=== PATIENT | female | born 1955 | race Two or more races ===

== ENCOUNTER 2025-01-26 07:58 | Inpatient (IN) | payer OTHER ==
[~2025-01-26] VITALS: Ht 154.9 cm; Wt 68.0 kg
--- NOTE | 2025-01-26 08:18 | ED.PDOC ---
GI ASSESSMENT HPI Comments 69 y/o F, with PMHx of GERD and diverticulosis presents to the ED for CC of abdominal pain. Patient states, she has been experiencing LUQ and LLQ abdominal pain with associated nausea [id number]. Patient c/o current 01/31 left-sided abdominal pain. Patient denies vomiting, diarrhea, fever, dysuria, or hematuria. No other symptoms or modifying factors are present at this time. Chief Complaint: Abdominal Pain Time Seen by MD: 08:00 Reviewed Notes: Nurses Notes, Medications, Allergies Allergies: Coded Allergies: Hydrocodone (Verified Allergy, Unknown, 01/26/25) Information Source: Patient Mode of Arrival: Ambulatory Timing: Weeks Duration: Since onset Vomitus: None Stool: Normal Severity: Moderate Recent: None Recent Hx of: None Pain Location: LUQ, LLQ Modifying Factors: Nothing Associated sign and symptoms: Nausea, Abdominal Pain Past Medical History PAST MEDICAL HISTORY: GERD Surgical History: , Hysterectomy (partial) Surgical History (Other): right-shoulder COMMUNITY RECREATION COORDINATOR History: Denies all COMMUNITY RECREATION COORDINATOR Hx Family History Family History: Family hx of DM, Family hx of HTN Social History Smoker: Non-Smoker Alcohol: Denies ETOH Use Drugs: Denies Drug Use Lives In: Home Constitutional: denies: chills, diaphoresis, fatigue, fever, malaise, sweats, weakness, others EENTM: denies: blurred vision, double vision, ear bleeding, ear discharge, ear drainage, ear pain, ear ringing, eye pain, eye redness, hearing loss, mouth pain, mouth swelling, nasal discharge, nose bleeding, nose congestion, nose pain, photophobia, tearing, throat pain, throat swelling, voice changes, others Respiratory: denies: cough, hemoptysis, orthopnea, SOB at rest, shortness of breath, SOB with excertion, stridor, wheezing, others Cardiovascular: denies: chest pain, dizzy spells, diaphoresis, Dyspnea on exertion, edema, irregular heart beat, left arm pain, lightheadedness, palpitations, PND, syncope, others Gastrointestinal: reports: abdominal pain, nausea; denies: abdomen distended, blood streaked bowels, constipated, diarrhea, dysphagia, difficulty swallowing, hematemesis, melena, poor appetite, poor fluid intake, rectal bleeding, rectal pain, vomiting, others Genitourinary: denies: abnormal vagina bleeding, burning, dyspareunia, dysuria, flank pain, frequency, hematuria, incontinence, pain, , vagina discharge, urgency, others Neurological: denies: dizziness, fainting, headache, left sided numbness, left sided weakness, numbness, paresthesia, pre-existing deficit, right sided numbness, right sided weakness, seizure, speech problems, tingling, tremors, weakness, others Musculoskeletal: denies: back pain, gout, joint pain, joint swelling, muscle pain, muscle stiffness, neck pain, others Integumetry: denies: bruises, change in color, change in hair/nails, dryness, laceration, lesions, lumps, rash, wounds, others Allergic/Immunocompromised: denies: Difficulty Healing, Frequent Infections, Hives, Itching, others Hematologic/Lymphatic: denies: anemia, blood clots, easy bleeding, easy bruising, swollen glands, others Endocrine: denies: excessive hunger, excessive sweating, excessive thirst, excessive urination, flushing, intolerance to cold, intolerance to heat, unexplained weight gain, unexplained weight loss, others Psychiatric: denies: anxiety, bipolar disorder, depression, hopeless, panic disorder, schizophrenia, sleepless, suicidal, others All Other Systems: Reviewed and Negative Physical Exam General Appearance: Moderate Distress HEENT: Normal ENT Inspection, Pharynx Normal, TMs Normal Neck: Full Range of Motion, Non-Tender, Normal, Normal Inspection Respiratory: Chest Non-Tender, Lungs Clear, No Accessory Muscle Use, No Res piratory Distress, Normal Breath Sounds Cardiovascular: No Edema, No JVD, No Murmur, No Gallop, Normal Peripheral Pulses, Regular Rate/Rhythm Breast Exam: Deferred Gastrointestinal: LLQ, LUQ, No Organomegaly, Non Tender, No Pulsatile Mass, Normal Bowel Sounds, Soft, Tenderness Genitalia: Deferred Pelvic: Deferred Rectal: Deferred Extremities: No calf tenderness, Normal capillary refill, Normal inspection, Normal range of motion, Non-tender, No pedal edema Musculoskeletal : Apperance: Normal Neurologic: Alert, enlisted aircrew/aerial observer/gunner II-XII nml as Tested, Motor Weakness, Normal Affect, Normal Mood, No Sensory Deficits Cerebellar Function: Normal Reflexes: Normal Skin: Dry, Normal Color, Warm Lymphatic: No Adenopathy Was a procedure done? Was a procedure done?: No GI differential Dx Differential Diagnosis: Diverticular disease, Gastritis/PUD, Gastroenteritis, Inflammatory BD, Electrolyte Imbalance, Bacterial, Viral X-Ray, Labs, Meds, VS Vital Signs Date Time Temp Pulse Resp B/P (MAP) Pulse Ox O2 Delivery O2 Flow Rate FiO2 01/26/25 10:23 108/74 01/26/25 09:18 188/75 01/26/25 09:17 66 18 188/75 (112) 98 01/26/25 08:36 78 18 98 Room Air 01/26/25 08:36 98.2 78 18 190/90 (123) 98 98.2 01/26/25 08:00 97.7 83 16 170/89 97 97.7 Lab Test 01/26/25 10:35 01/26/25 09:14 01/26/25 09:10 Range/Units Urine Color Yellow Yellow Urine Clarity Cloudy H Clear Urine pH 5.5 5.0-9.0 Urine Specific [place] 1.021 1.001-1.035 Urine Protein Trace H Negative Urine Ketones 1+ H Negative Urine Blood 1+ H Negative /uL Urine Nitrite Negative Negative Urine Bilirubin Negative Negative Urine Urobilinogen Normal Negative mg/dL Urine Leukocyte Esterase 3+ Negative /uL Urine RBC 15 0 - 4 /hpf Urine Microscopic WBC 20 H 0-5 /HPF Urine Squamous Epithelial Cells Mod <5 /hpf Urine Bacteria Few H None Seen /hpf Urine Mucus Few None Seen Urine Yeast (Budding) Few None Seen /hpf Urine Glucose Normal Normal mg/dL Urine Opiates Screen Neg NEGATIVE Urine Fentanyl Screen Neg NEGATIVE Urine Barbiturates Screen Neg NEGATIVE Urine Phencyclidine Screen Neg NEGATIVE Urine Amphetamines Screen Neg NEGATIVE Urine Benzodiazepines Screen Neg NEGATIVE Urine Cocaine Screen Neg NEGATIVE Urine Cannabinoids Screen Neg NEGATIVE Sodium Level 142 136-145 mmol/L Potassium Level 4.4 3.5-5.1 mmol/L Chloride Level 105 98-107 mmol/L Carbon Dioxide Level 24 20-31 mmol/L Anion Gap 13 5-15 Blood Urea Nitrogen 6 L 9-23 mg/dL Creatinine 0.91 0.550-1.02 mg/dL Glomerular Filtration Rate Calc 69 >90 mL/min BUN/Creatinine Ratio 6.6 L 10.0-20.0 Serum Glucose 95 74-106 mg/dL Calcium Level 9.6 8.7-10.4 mg/dL Total Bilirubin 0.8 0.2-1.0 mg/dL Aspartate Amino Transferase (AST) 36 13-40 U/L Alanine Aminotransferase (ALT) 30 7-40 U/L Alkaline Phosphatase 82 46-116 U/L Total Protein 8.0 5.7-8.2 g/dL Albumin 4.7 3.2-4.8 g/dL Lipase 37 12-53 U/L White Blood Count 6.2 4.4-10.8 10^3/uL Red Blood Count 4.96 4.0-5.20 10^6/uL Hemoglobin 15.2 12.2-16.2 g/dL Hematocrit 44.8 36.0-46.0 % Mean Corpuscular Volume 90.3 80.0-100.0 fL Mean Corpuscular Hemoglobin 30.7 28.0-32.0 pg Mean Corpuscular Hemoglobin Concent 34.0 32.0-36.0 g/dL Red Cell Distribution Width 12.9 11.8-14.3 % Platelet Count 224 140-450 10^3/uL Mean Platelet Volume 9.3 6.9-10.8 fL Neutrophils (%) (Auto) 70.0 37.0-80.0 % Lymphocytes (%) (Auto) 22.0 10.0-50.0 % Monocytes (%) (Auto) 6.4 0.0-12.0 % Eosinophils (%) (Auto) 0.8 0.0-7.0 % Basophils (%) (Auto) 0.8 0.0-2.0 % Neutrophils # (Auto) 4.4 1.6-8.6 10 ^3/uL Lymphocytes # (Auto) 1.4 0.4-5.4 10 ^3/uL Monocytes # (Auto) 0.4 0-1.3 10 ^3/uL Eosinophils # (Auto) 0 0-0.8 10 ^3/uL Basophils # (Auto) 0 0-0.2 10 ^3/uL Nucleated Red Blood Cells 0.2 % Current Medications Medications (Trade) Dose Ordered Sig/Saranya Route Start Time Stop Time Status Last Admin Sodium Chloride 500 ml @ 500 mls/hr Q1H ONCE IVB 01/26/25 08:15 01/26/25 09:14 DC 01/26/25 08:41 Clonidine HCl (Catapres Tablet) 0.2 mg ONCE ONCE PO 01/26/25 09:00 01/26/25 09:01 DC 01/26/25 09:18 CT ABD PEL: IMPRESSION: 1. Scattered colonic diverticula without adjacent inflammatory changes to suggest diverticulitis. 2. Hepatic steatosis. 3. Additional nonacute findings as described above. The patient's CBC is within normal limits The chemistry panel is within normal limits The patient was given Catapres 0.2 mg by mouth for the elevated blood pressure The patient was given normal saline as a bolus The urine tox is negative The urine test is positive for a significant urinary tract infection The patient is given Rocephin 1 g IV piggyback for the infection The patient is admitted Images Reviewed?: Images reviewed and evaluated by me Time of 1ST Reevaluation: 08:30 Reevaluation 1ST: Unchanged Patient Education/Counseling: Diagnosis, Treatment, Prognosis Family Education/Counseling: No Family Present SEPSIS Sepsis Screen Date sepsis recognized/suspect: Jan 26, 2025 Time Sepsis recognized/suspect: 08 Recent Procedure: No On Antibiotic Therapy: No Respiratory Rate >20: No Heart Rate >90: No Temp<36 C (96.8 F) or >38.3 C: No SBP <90 or MAP <65 mmHG: No New Acute Mental Status Change: No Is the patient on CPAP, BIPAP,: No Physician Orders Ct Ab Pel Wo Con-No Oral Or Iv (01/26/25 08:13) Heplock Iv (01/26/25 08:13) Vital Signs Date Time Temp Pulse Resp B/P (MAP) Pulse Ox O2 Delivery O2 Flow Rate FiO2 01/26/25 10:23 108/74 01/26/25 09:18 188/75 01/26/25 09:17 66 18 188/75 (112) 98 01/26/25 08:36 78 18 98 Room Air 01/26/25 08:36 98.2 78 18 190/90 (123) 98 98.2 01/26/25 08:00 97.7 83 16 170/89 97 97.7 Laboratory Tests Test 01/26/25 09:10 White Blood Count 6.2 10^3/uL (4.4-10.8) Medications Medications Dose Ordered Sig/Saranya Route Start Time Stop Time Status Last Admin Dose Admin Clonidine HCl 0.2 mg ONCE ONCE PO 01/26/25 09:00 01/26/25 09:01 DC 01/26/25 09:18 Sodium Chloride 500 ml @ 500 mls/hr Q1H ONCE IVB 01/26/25 08:15 01/26/25 09:14 DC 01/26/25 08:41 Departure 1 Departure Time of Disposition: 12:36 Impression: Primary Impression: Intractable abdominal pain Additional Impression: UTI (urinary tract infection) Qualified Codes: N30.00 - Acute cystitis without hematuria Disposition: ADMITTED INPATIENT Admit to: Med Surg Condition: Fair Critical Care Note Critical Care Time?: No Stability Stability form required: Yes Unstable for transfer: ED Physician Assesment (Clinical assesment) Heart Score Heart Score: Heart Score Response (Comments) Value History N/A 0 EKG N/A 0 Age N/A 0 Risk Factors N/A 0 Troponin N/A 0 Total 0 I personally scribed for NADEGE BLAIR MD ([email or web address]) on 01/26/25 at 08:17. Electronically submitted by Li Kern ([email or web address]). I personally scribed for NADEGE BLAIR MD ([email or web address]) on 01/26/25 at 09:18. Electronically submitted by Li Kern [email or web address]). NADEGE BLAIR MD Jan 26, 2025 08:17
[2025-01-26] MEDS: SODIUM CHLORIDE 0.9% 500 ML IVB ONE (08:41)
--- NOTE | 2025-01-26 09:02 | DVH ---
CLINICAL INFORMATION: Left upper and lower quadrant pain. TECHNIQUE: Axial CT images of the abdomen and pelvis were obtained without IV contrast. Coronal and s agittal reformatted images were obtained, reviewed, and stored. Evaluation of the parenchymal organs is limited without IV contrast. Evaluation of the bowel and mesentery is limited without oral contras t. All CT scans at this medical facility are performed using dose modulation techniques as appropriat e to a performed exam including the following: Automated exposure control was utilized; adjustment of the MA and/or KV according to patient size; and use of iterative reconstruction technique. CTDIvol = 9.97 mGy DLP = 546.84 mGy-cm COMPARISON: None FINDINGS: Lung bases: Minimal dependent atelectasis. Liver: Hepatic steatosis. Biliary: No calcified gallstones or biliary ductal dilatation. Spleen: Unremarkable. Pancreas: Grossly unremarkable in its noncontrast enhanced appearance. Adrenal glands: Unremarkable. No mass. Kidneys: No hydronephrosis. No renal or ureteral calculi. Fluid density lesion at the inferior pole o f the right kidney measuring up to 2 cm, likely a cyst. Aorta/Vascular: Minimal atherosclerotic calcification. No abdominal aortic aneurysm. Lymph nodes: No mass or lymphadenopathy. Bowel/mesentery: No small bowel obstruction. No free air or free fluid. Appendix is not visualized. S cattered colonic diverticula without adjacent inflammatory changes to suggest diverticulitis. Pelvic organs: Uterus is anteverted. Bladder: Unremarkable. No mass. Abdominal wall: No mass or hernia. Bones: No acute fracture or suspicious intraosseous lesion. IMPRESSION: 1. Scattered colonic diverticula without adjacent inflammatory changes to suggest diverticulitis. 2. Hepatic steatosis. 3. Additional nonacute findings as described above.
[2025-01-26 09:35] LABS: Hematocrit 44.8 % (36.0-46.0); Hemoglobin 15.2 g/dL (12.2-16.2); Mean Corpuscular Hemoglobin 30.7 pg (28.0-32.0); Mean Corpuscular Volume 90.3 fL (80.0-100.0); Nucleated Red Blood Cells % 0.2 %
[2025-01-26 10:07] LABS: Alanine Aminotransferase 30 U/L (7-40); Albumin 4.7 g/dL (3.2-4.8); Alkaline Phosphatase 82 U/L (46-116); Anion Gap 13 (5-15); BUN/Creatinine Ratio 6.6 (10.0-20.0); Bilirubin, Total 0.8 mg/dL (0.2-1.0); Calcium 9.6 mg/dL (8.7-10.4); Carbon Dioxide 24 mmol/L (20-31); Chloride 105 mmol/L (98-107); Glucose 95 mg/dL (74-106); Potassium 4.4 mmol/L (3.5-5.1); Sodium 142 mmol/L (136-145); Total Protein 8.0 g/dL (5.7-8.2)
[2025-01-26 10:08] LABS: Blood Urea Nitrogen 6 mg/dL (9-23)
[2025-01-26 10:36] LABS: Lipase 37 U/L (12-53)
[2025-01-26 10:59] LABS: Urine Budding Yeast FEW /hpf (None Seen); Urine Protein, UAD TRACE (Negative)
[2025-01-26] MEDS ORDERED: NITROGLYCERIN 0.4 MG SL TAB SL PRN (11:45)
--- NOTE | 2025-01-26 11:48 | DVHHPRES ---
History of Present Illness Resident Creating Document: BRAYAN KUO RESIDENT History of Present Illness Marce Natarajan is a 69-year-old female with a PMH of GERD, diverticulitis, osteoarthritis presented to the ED with the chief complaints of left-sided abdominal pain since 3 weeks. Patient reported she was initially went to [facility] where she was given tramadol and sent home however the pain not improved and remained constant which is 8 to 10/10 in intensity, located in left upper and lower quadrant radiating to flank and back, aggravated by eating but no relieving factors associated with the nausea but no vomiting and diarrhea. Patient also reported increased urinary frequency but denies dysuria. Patient is thinking of diverticulitis because of history of diverticulitis 2 years ago. PMH follow GERD, diverticulitis, osteoarthritis, C diff infection 4 years ago PSH: Partial hysterectomy for endometriosis, rotator cuff surgery Family history: Stomach cancer in aunt and breast cancer Social history: Lives at home. Denies smoking, alcohol and other drug abuse Allergies: No specific allergies Home medications: Omeprazole Review of Systems Review of Systems Patient seen and examined at the bedside. Currently complaining of left-sided abdominal and flank pain associated with the nausea, abdominal bloating, belching. Positive for increased urinary frequency. Rest of ROS is negative Allergies: Coded Allergies: Hydrocodone (Verified Allergy, Unknown, 01/26/25) Medications Current Medications Medications Dose Ordered Sig/Saranya Route Start Time Stop Time Status Last Admin Dose Admin Sodium Chloride 10 ml Q8HR IV 01/26/25 14:00 UNV Sodium Chloride 1,000 ml @ 60 mls/hr [id number] IV 01/26/25 11:45 UNV Ondansetron HCl 4 mg Q4HP PRN IV 01/26/25 11:45 UNV Enoxaparin Sodium 40 mg DAILY SC 01/27/25 10:00 UNV Acetaminophen 650 mg Q6HP PRN PO 01/26/25 11:45 UNV Morphine Sulfate 2 mg Q4HPRN PRN IV 01/26/25 11:45 UNV Nitroglycerin 0.4 mg Q5MINP PRN SL 01/26/25 11:45 UNV Morphine Sulfate 2 mg Q30M PRN IV 01/26/25 11:45 UNV Pantoprazole Sodium 40 mg DAILY IV 01/27/25 10:00 UNV Sucralfate 1 gm BID@0600,2200 PO 01/26/25 11:45 UNV Ceftriaxone Sodium 50 ml @ 100 mls/hr DAILY@09 IV 01/27/25 09:00 UNV Exam Vital Signs Vital Signs Date Time Temp Pulse Resp B/P (MAP) Pulse Ox O2 Delivery O2 Flow Rate FiO2 01/26/25 10:23 108/74 01/26/25 09:17 66 18 98 01/26/25 08:36 Room Air 01/26/25 08:36 98.2 98.2 Exam Pt is lying on bed General Appearance: Alert, Oriented X3, Cooperative, Not in acute distress HEENT: Atraumatic, Mucous membranes moist/pink Respiratory: Clear to auscultation, Normal air movement, No added sounds Cardiovascular: Regular rate, Normal S1, Normal S2, No murmurs Abdominal: Active bowel sounds, Soft, no distention, left upper and lower quadrant, flank tenderness Extremities: No edema, Normal pulses, No tenderness/swelling Skin: No Significant rash, except past surgical scars Neuro: Normal speech, sensorimotor deficits none Psych/Mental Status: Mental status NL, Mood NL Nurse was there as structural iron worker during examination Labs/Xrays Labs Test 01/26/25 10:35 01/26/25 09:14 01/26/25 09:10 Range/Units Urine Color Yellow Yellow Urine Clarity Cloudy H Clear Urine pH 5.5 5.0-9.0 Urine Specific [place] 1.021 1.001-1.035 Urine Protein Trace H Negative Urine Ketones 1+ H Negative Urine Blood 1+ H Negative /uL Urine Nitrite Negative Negative Urine Bilirubin Negative Negative Urine Urobilinogen Normal Negative mg/dL Urine Leukocyte Esterase 3+ Negative /uL Urine RBC 15 0 - 4 /hpf Urine Microscopic WBC 20 H 0-5 /HPF Urine Squamous Epithelial Cells Mod <5 /hpf Urine Bacteria Few H None Seen /hpf Urine Mucus Few None Seen Urine Yeast (Budding) Few None Seen /hpf Urine Glucose Normal Normal mg/dL Sodium Level 142 136-145 mmol/L Potassium Level 4.4 3.5-5.1 mmol/L Chloride Level 105 98-107 mmol/L Carbon Dioxide Level 24 20-31 mmol/L Anion Gap 13 5-15 Blood Urea Nitrogen 6 L 9-23 mg/dL Creatinine 0.91 0.550-1.02 mg/dL Glomerular Filtration Rate Calc 69 >90 mL/min BUN/Creatinine Ratio 6.6 L 10.0-20.0 Serum Glucose 95 74-106 mg/dL Calcium Level 9.6 8.7-10.4 mg/dL Total Bilirubin 0.8 0.2-1.0 mg/dL Aspartate Amino Transferase (AST) 36 13-40 U/L Alanine Aminotransferase (ALT) 30 7-40 U/L Alkaline Phosphatase 82 46-116 U/L Total Protein 8.0 5.7-8.2 g/dL Albumin 4.7 3.2-4.8 g/dL Lipase 37 12-53 U/L White Blood Count 6.2 4.4-10.8 10^3/uL Red Blood Count 4.96 4.0-5.20 10^6/uL Hemoglobin 15.2 12.2-16.2 g/dL Hematocrit 44.8 36.0-46.0 % Mean Corpuscular Volume 90.3 80.0-100.0 fL Mean Corpuscular Hemoglobin 30.7 28.0-32.0 pg Mean Corpuscular Hemoglobin Concent 34.0 32.0-36.0 g/dL Red Cell Distribution Width 12.9 11.8-14.3 % Platelet Count 224 140-450 10^3/uL Mean Platelet Volume 9.3 6.9-10.8 fL Neutrophils (%) (Auto) 70.0 37.0-80.0 % Lymphocytes (%) (Auto) 22.0 10.0-50.0 % Monocytes (%) (Auto) 6.4 0.0-12.0 % Eosinophils (%) (Auto) 0.8 0.0-7.0 % Basophils (%) (Auto) 0.8 0.0-2.0 % Neutrophils # (Auto) 4.4 1.6-8.6 10 ^3/uL Lymphocytes # (Auto) 1.4 0.4-5.4 10 ^3/uL Monocytes # (Auto) 0.4 0-1.3 10 ^3/uL Eosinophils # (Auto) 0 0-0.8 10 ^3/uL Basophils # (Auto) 0 0-0.2 10 ^3/uL Nucleated Red Blood Cells 0.2 % SEPSIS Sepsis Screen Date sepsis recognized/suspect: Jan 26, 2025 Time Sepsis recognized/suspect: 0800 Recent Procedure: No On Antibiotic Therapy: No Respiratory Rate >20: No Heart Rate >90: No Temp<36 C (96.8 F) or >38.3 C: No SBP <90 or MAP <65 mmHG: No New Acute Mental Status Change: No Is the patient on CPAP, BIPAP,: No Physician Orders Ct Ab Pel Wo Con-No Oral Or Iv (01/26/25 08:13) Heplock Iv (01/26/25 08:13) Admit (01/26/25 11:33) Allergies (01/26/25 11:33) Code Status (01/26/25:) Sodium Chloride Lock (Saline Lock Ns) (01/26/25 14:00) Sodium Chloride 0.9% (01/26/25 11:45) Ondansetron Hcl (Zofran) (01/26/25 11:45) Enoxaparin Sodium (Lovenox) (01/27/25 10:00) Complete Blood Count (01/27/25 04:00) Comprehensive Metabolic Panel (01/27/25 04:00) Condition: Fair (01/26/25 11:33) Acetaminophen Tablet (Tylenol Tablet) (01/26/25 11:45) Clear Liq Diet (01/26/25 Lunch) Morphine Sulfate Injection (01/26/25 11:45) Nitroglycerin Sublingual (Ntrostat Subli (01/26/25 11:45) Morphine Sulfate Injection (01/26/25 11:45) Oxygen By Nasal Cannula (01/26/25:33) Stat Ekg For Chest Pain (01/26/25:33) Notify Md Of Changes From Base (01/26/25 11:33) Office Systems Technology Instructor For 24 Hours (01/26/25 11:33) Emergency Dysrhythmia Protocol (01/26/25 11:33) Rhythm Strips Once Every Shift (01/26/25 11:33) Pantoprazole (Protonix) (01/27/25 10:00) Pantoprazole (Protonix) (01/26/25 11:45) Sucralfate Susp (Carafate Susp) (01/26/25 11:45) Ceftriaxone 1gm/50ml (Rocephin) (01/27/25 09:00) Ceftriaxone 1gm/50ml (Rocephin) (01/26/25 11:45) Lactic Acid W/ Reflex Order (01/26/25 11:33) B-Type Natriuretic Peptide (01/26/25 11:33) Drug Screen (01/26/25 11:33) Magnesium (01/26/25 11:33) Urine Bacterial Culture (01/26/25 11:33) Vital Signs Date Time Temp Pulse Resp B/P (MAP) Pulse Ox O2 Delivery O2 Flow Rate FiO2 01/26/25 10:23 108/74 01/26/25 09:18 188/75 01/26/25 09:17 66 18 188/75 (112) 98 01/26/25 08:36 78 18 98 Room Air 01/26/25 08:36 98.2 78 18 190/90 (123) 98 98.2 01/26/25 08:00 97.7 83 16 170/89 97 97.7 Laboratory Tests Test 01/26/25 09:10 White Blood Count 6.2 10^3/uL (4.4-10.8) Medications Medications Dose Ordered Sig/Saranya Route Start Time Stop Time Status Last Admin Dose Admin Clonidine HCl 0.2 mg ONCE ONCE PO 01/26/25 09:00 01/26/25 09:01 DC 01/26/25 09:18 0.2 MG Sodium Chloride 500 ml @ 500 mls/hr Q1H ONCE IVB 01/26/25 08:15 01/26/25 09:14 DC 01/26/25 08:41 500 MLS/HR Assessment/Plan Assessment/Plan # Acute complicated UTI/ cystitis # Acute Pyelonephritis - evident on urinalysis - ordered urine bacterial culture - currently giving Rocephin # Possible Acute epigastritis # Acute GERD - Protonix - Carafate # Colonic diverticulosis- dietary education given # Hepatic steatosis likely possible MASH - evident on CT, outpatient follow up with GI # Hypertensive urgency without known diagnosis of hypertension -given clonidine in ED -continuously monitor blood pressure -started on nifedipine 30 GI PPX: Protonix VTE ppx: Lovenox Diet: clear liquid diet Goals of care addressed with the patient for more than 27 minutes: Full code status Case discussed with Dr. Lowe ,patient and nurse Plan discussed with: Patient, Spouse My Orders Orders - BRAYAN KUO RESIDENT Procedure Category Date Status Time Admit ADMIT 01/26/25 Transmitted 11:33 Allergies ISMAEL 01/26/25 In Process 11:33 Code Status CODE 01/26/25 Transmitted 11:33 Sodium Chloride Lock PHA 01/26/25 Logged (Saline Lock Ns) 14:00 Sodium Chloride 0.9% PHA 01/26/25 Logged 11:45 Ondansetron Hcl PHA 01/26/25 Logged (Zofran) 11:45 Enoxaparin Sodium PHA 01/27/25 Logged (Lovenox) 10:00 Complete Blood Count LAB 01/27/25 Verified 04:00 Comprehensive LAB 01/27/25 Verified Metabolic Panel 04:00 Condition: Fair ISMAEL 01/26/25 In Process 11:33 Acetaminophen Tablet PHA 01/26/25 Logged (Tylenol Tablet) 11:45 Clear Liq Diet DIET 01/26/25 Transmitted Lunch Morphine Sulfate PHA 01/26/25 Logged Injection 11:45 Nitroglycerin PHA 01/26/25 Logged Sublingual (Ntrostat 11:45 Morphine Sulfate PHA 01/26/25 Logged Injection 11:45 Oxygen By Nasal RT 01/26/25 Transmitted Cannula 11:33 Stat Ekg For Chest [facility] 01/26/25 In Process Pain 11:33 Notify Of Changes [facility] 01/26/25 In Process From Base 11:33 Office Systems Technology Instructor For [facility] 01/26/25 In Process 24 Hours 11:33 Emergency Dysrhythmia [facility] 01/26/25 In Process Protocol 11:33 Rhythm Strips Once [facility] 01/26/25 In Process Every Shift 11:33 Pantoprazole PHA 01/27/25 Logged (Protonix) 10:00 Pantoprazole PHA 01/26/25 Logged (Protonix) 11:45 Sucralfate Susp PHA 01/26/25 Logged (Carafate Susp) 11:45 Ceftriaxone 1gm/50ml PHA 01/27/25 Logged (Rocephin) 09:00 Ceftriaxone 1gm/50ml PHA 01/26/25 Logged (Rocephin) 11:45 Lactic Acid W/ Reflex LAB 01/26/25 Logged Order 11:33 B-Type Natriuretic LAB 01/26/25 Logged Peptide 11:33 Drug Screen LAB 01/26/25 Logged 11:33 Magnesium LAB 01/26/25 Logged 11:33 Urine Bacterial ERIK 01/26/25 Logged Culture 11:33 BRAYAN KUO RESIDENT Jan 26, 2025 11:48
[2025-01-26 12:05] VITALS: BP 131/53; PULSE 58; RESP 16; TEMP 98.1; O2SAT 99
[2025-01-26] MEDS ORDERED: MORPHINE SULFATE 4 MG/ML SYR/VIAL IV PRN (12:15)
[2025-01-26 12:30] LABS: Amphetamine Screen, Urine Neg (NEGATIVE); Barbiturate Scree,Urine Neg (NEGATIVE); Benzodiazephine Screen, Urine Neg (NEGATIVE); Cannabinoid Screen, Urine Neg (NEGATIVE); Cocaine Screen, Urine Neg (NEGATIVE); Opiate Scree,Urine Neg (NEGATIVE); Phencyclidine Screen, Urine Neg (NEGATIVE)
[2025-01-26] MEDS: SUCRALFATE 1 GM/10 ML ORAL SUSP PO SCH (12:52)
[2025-01-26] MEDS: PANTOPRAZOLE 40 MG/10 ML VIAL INJ IV ONE (12:52)
[2025-01-26] MEDS: SODIUM CHLORIDE 0.9% 1,000 ML IV SCH (12:52)
[2025-01-26] MEDS: SODIUM CHLOR 0.9% PF (SALINE LOCK) 10ML VIAL/SYR IV SCH (14:29)
[2025-01-26 14:45] VITALS: O2SAT 99
[2025-01-26 14:48] VITALS: BP 156/82; PULSE 64; RESP 16; TEMP 97.6; O2SAT 99
[2025-01-26] MEDS: MORPHINE SULFATE 4 MG/ML SYR/VIAL IV PRN (15:11)
[2025-01-26 20:00] VITALS: RESP 16
[2025-01-26 20:45] VITALS: BP 147/67; PULSE 62; RESP 16; TEMP 98; O2SAT 98
[2025-01-27] VITALS (8 sets, daily range): BP systolic 109–165; BP diastolic 58–84; PULSE 56–66; RESP 16–18; TEMP 98–98.7; O2SAT 96–100
[2025-01-27 04:04] LABS: Hematocrit 37.9 % (36.0-46.0); Hemoglobin 12.9 g/dL (12.2-16.2); Mean Corpuscular Hemoglobin 31.2 pg (28.0-32.0); Mean Corpuscular Volume 91.9 fL (80.0-100.0); Nucleated Red Blood Cells % 0.1 %
[2025-01-27 04:17] LABS: Alanine Aminotransferase 23 U/L (7-40); Albumin 3.8 g/dL (3.2-4.8); Alkaline Phosphatase 65 U/L (46-116); Anion Gap 8 (5-15); BUN/Creatinine Ratio 7.9 (10.0-20.0); Calcium 9.0 mg/dL (8.7-10.4); Carbon Dioxide 26 mmol/L (20-31); Glucose 87 mg/dL (74-106); Potassium 4.3 mmol/L (3.5-5.1); Sodium 142 mmol/L (136-145); Total Protein 6.5 g/dL (5.7-8.2)
[2025-01-27 04:18] LABS: Bilirubin, Total 0.5 mg/dL (0.2-1.0)
[2025-01-27 04:29] LABS: Blood Urea Nitrogen 6 mg/dL (9-23); Chloride 108 mmol/L (98-107)
[2025-01-27] MEDS: ENOXAPARIN SOD 40 MG/0.4 ML SYRINGE SC SCH (09:36)
[2025-01-27] MEDS: PANTOPRAZOLE 40 MG/10 ML VIAL INJ IV SCH (09:36)
--- NOTE | 2025-01-27 16:01 | DVHPN2 ---
Reviewed: Care Plan, Labs, Medications, Previous Orders, Radiology Changes from previous H/P or p: No Changes General: Per HPI Objective Vitals Vital Signs Date Time Temp Pulse Resp B/P (MAP) Pulse Ox O2 Delivery O2 Flow Rate FiO2 01/27/25 14:41 158/66 01/27/25 14:30 58 16 01/27/25 14:03 98.7 96 98.7 01/27/25 08:00 Room Air* 0 21 Intake/Output Intake and Output 01/27/25 07:00 Intake Total 1475 ml Balance 1475 ml Intake Oral 475 ml IV Total 1000 ml # Voids 2 General Appearance: Alert, Oriented X3, Cooperative, No acute distress Cardiovascular: Normal S1, Normal S2 Abdomen: Soft Medications Current Medications Medications Dose Ordered Sig/Saranya Route Start Time Stop Time Status Last Admin Dose Admin Sodium Chloride 10 ml Q8HR IV 01/26/25 14:00 01/27/25 14:00 10 ML Sodium Chloride 1,000 ml @ 60 mls/hr [id number] IV 01/26/25 11:45 01/27/25 05:07 60 MLS/HR Ondansetron HCl 4 mg Q4HP PRN IV 01/26/25 11:45 Enoxaparin Sodium 40 mg DAILY SC 01/27/25 10:00 01/27/25 09:36 40 MG Acetaminophen 650 mg Q6HP PRN PO 01/26/25 11:45 Morphine Sulfate 2 mg Q4HPRN PRN IV 01/26/25 12:15 01/27/25 14:00 2 MG Nitroglycerin 0.4 mg Q5MINP PRN SL 01/26/25 11:45 Morphine Sulfate 2 mg Q30M PRN IV 01/26/25 12:15 Pantoprazole Sodium 40 mg DAILY IV 01/27/25 10:00 01/27/25 09:36 40 MG Sucralfate 1 gm BID@0600,2200 PO 01/26/25 11:45 01/27/25 05:07 1 GM Ceftriaxone Sodium 50 ml @ 100 mls/hr DAILY@09 IV 01/27/25 09:00 01/27/25 09:35 100 MLS/HR Nifedipine 60 mg DAILY PO 01/28/25 10:00 Laboratory Results Laboratory Tests 01/27/25 03:33 Chemistry Test 01/27/25 03:33 Albumin 3.8 g/dL (3.2-4.8) Calcium Level 9.0 mg/dL (8.7-10.4) Total Protein 6.5 g/dL (5.7-8.2) LFT Test 01/27/25 03:33 Alanine Aminotransferase (ALT) 23 U/L (7-40) Alkaline Phosphatase 65 U/L (46-116) Aspartate Amino Transferase (AST) 26 U/L (13-40) Total Bilirubin 0.5 mg/dL (0.2-1.0) Urinalysis Test 01/26/25 10:35 Urine Color Yellow (Yellow) Urine Clarity Cloudy (Clear) H Urine pH 5.5 (5.0-9.0) Urine Specific [place] 1.021 (1.001-1.035) Urine Protein Trace (Negative) H Urine Ketones 1+ (Negative) H Urine Blood 1+ /uL (Negative) H Urine Nitrite Negative (Negative) Urine Bilirubin Negative (Negative) Urine Urobilinogen Normal mg/dL (Negative) Urine Leukocyte Esterase 3+ /uL (Negative) Urine RBC 15 /hpf (0 - 4) Urine Microscopic WBC 20 /HPF (0-5) H Urine Squamous Epithelial Cells Mod /hpf (<5) Urine Bacteria Few /hpf (None Seen) H Urine Mucus Few (None Seen) Urine Yeast (Budding) Few /hpf (None Seen) Urine Glucose Normal mg/dL (Normal) Microbiology Microbiology Date/Time Source Procedure Growth Status 01/26/25 10:35 Voided Urine Urine Culture - Preliminary Resulted Labs and/or images reviewed: Labs reviewed by me, Image(s) reviewed by me Assessment/Plan Assessment/Plan Marce Natarajan is a 69-year-old female with a PMH of GERD, diverticulitis, osteoarthritis presented to the ED with the chief complaints of left-sided abdominal pain since 3 weeks. Patient reported she was initially went to [facility] where she was given tramadol and sent home however the pain not improved and remained constant which is 8 to 10/10 in intensity, located in left upper and lower quadrant radiating to flank and back, aggravated by eating but no relieving factors associated with the nausea but no vomiting and diarrhea. Patient also reported increased urinary frequency but denies dysuria. Patient is thinking of diverticulitis because of history of diverticulitis 2 years ago. PMH follow GERD, diverticulitis, osteoarthritis, C diff infection 4 years ago PSH: Partial hysterectomy for endometriosis, rotator cuff surgery Family history: Stomach cancer in aunt and breast cancer Social history: Lives at home. Denies smoking, alcohol and other drug abuse Allergies: No specific allergies # Acute complicated UTI/ cystitis # Acute Pyelonephritis - evident on urinalysis - ordered urine bacterial culture - currently giving Rocephin #suspected gastroenteritis (bacterial) # Acute GERD - Protonix - Carafate # Colonic diverticulosis- dietary education given # Hepatic steatosis likely possible MASH - evident on CT, outpatient follow up with GI # Hypertensive urgency without known diagnosis of hypertension -given clonidine in ED -continuously monitor blood pressure -started on nifedipine 30 01/27/2025: continue with iv abx. pain control. urine cx pending. increase nifedipine for better blood pressure control. started on IV Abx GI PPX: Protonix VTE ppx: Lovenox Diet: advance as tolerated Plan discussed with: Patient My Orders Orders - RUTH CAREY DO Procedure Category Date Status Time Nifedipine Er PHA 01/28/25 In Process (Procardia Xl 10:00 Date of Service: Jan 27, 2025 Billing Provider: RUTH CAREY DO Common Visit Codes: [id number] INP/OBS CARE(HIGH) RUTH CAREY DO Jan 27, 2025 16:01
[2025-01-28] VITALS (8 sets, daily range): BP systolic 108–142; BP diastolic 61–83; PULSE 62–77; RESP 17–20; TEMP 97.8–98.4; O2SAT 95–99
[2025-01-28] MEDS: ACETAMINOPHEN 325 MG TAB PO PRN (12:19)
[2025-01-28] MEDS: ONDANSETRON HCL 4 MG/2 ML VIAL IV PRN (17:12)
[2025-01-29] VITALS (9 sets, daily range): BP systolic 111–143; BP diastolic 60–79; PULSE 70–81; RESP 16–18; TEMP 97.8–98.3; O2SAT 95–99
--- NOTE | 2025-01-29 14:28 | DVHPN2 ---
Reviewed: Care Plan, Labs, Medications, Previous Orders, Radiology Changes from previous H/P or p: No Changes General: Per HPI Objective Vitals Vital Signs Date Time Temp Pulse Resp B/P (MAP) Pulse Ox O2 Delivery O2 Flow Rate FiO2 01/29/25 14:21 98.2 79 16 143/79 (100) 99 98.2 01/29/25 08:00 Room Air* 0 21 Intake/Output Intake and Output 01/29/25 07:00 Intake Total 1010 ml Balance 1010 ml Intake Oral 760 ml IV Total 250 ml # Voids 3 General Appearance: Alert, Oriented X3, Cooperative, No acute distress Cardiovascular: Normal S1, Normal S2 Abdomen: Soft Medications Current Medications Medications Dose Ordered Sig/Saranya Route Start Time Stop Time Status Last Admin Dose Admin Sodium Chloride 10 ml Q8HR IV 01/26/25 14:00 01/29/25 14:02 10 ML Sodium Chloride 1,000 ml @ 60 mls/hr [id number] IV 01/26/25 11:45 01/29/25 06:41 60 MLS/HR Ondansetron HCl 4 mg Q4HP PRN IV 01/26/25 11:45 01/28/25 17:12 4 MG Enoxaparin Sodium 40 mg DAILY SC 01/27/25 10:00 01/29/25 08:49 40 MG Acetaminophen 650 mg Q6HP PRN PO 01/26/25 11:45 01/28/25 12:19 650 MG Morphine Sulfate 2 mg Q4HPRN PRN IV 01/26/25 12:15 01/29/25 11:59 2 MG Nitroglycerin 0.4 mg Q5MINP PRN SL 01/26/25 11:45 Morphine Sulfate 2 mg Q30M PRN IV 01/26/25 12:15 Pantoprazole Sodium 40 mg DAILY IV 01/27/25 10:00 01/29/25 08:48 40 MG Sucralfate 1 gm BID@0600,2200 PO 01/26/25 11:45 01/29/25 05:09 1 GM Ceftriaxone Sodium 50 ml @ 100 mls/hr DAILY@09 IV 01/27/25 09:00 01/29/25 08:48 100 MLS/HR Nifedipine 60 mg DAILY PO 01/28/25 10:00 01/29/25 08:48 60 MG Hydralazine HCl 25 mg Q8HR PO 01/27/25 22:00 Metronidazole 100 ml @ 100 mls/hr Q8HR IV 01/27/25 22:00 01/29/25 05:09 100 MLS/HR Laboratory Results Laboratory Tests 01/27/25 03:33 Urinalysis Test 01/26/25 10:35 Urine Color Yellow (Yellow) Urine Clarity Cloudy (Clear) H Urine pH 5.5 (5.0-9.0) Urine Specific [place] 1.021 (1.001-1.035) Urine Protein Trace (Negative) H Urine Ketones 1+ (Negative) H Urine Blood 1+ /uL (Negative) H Urine Nitrite Negative (Negative) Urine Bilirubin Negative (Negative) Urine Urobilinogen Normal mg/dL (Negative) Urine Leukocyte Esterase 3+ /uL (Negative) Urine RBC 15 /hpf (0 - 4) Urine Microscopic WBC 20 /HPF (0-5) H Urine Squamous Epithelial Cells Mod /hpf (<5) Urine Bacteria Few /hpf (None Seen) H Urine Mucus Few (None Seen) Urine Yeast (Budding) Few /hpf (None Seen) Urine Glucose Normal mg/dL (Normal) Microbiology Microbiology Date/Time Source Procedure Growth Status 01/26/25 10:35 Voided Urine Urine Culture - Final Complete Assessment/Plan Assessment/Plan Marce Natarajan is a 69-year-old female with a PMH of GERD, diverticulitis, osteoarthritis presented to the ED with the chief complaints of left-sided abdominal pain since 3 weeks. Patient reported she was initially went to [facility] where she was given tramadol and sent home however the pain not improved and remained constant which is 8 to 10/10 in intensity, located in left upper and lower quadrant radiating to flank and back, aggravated by eating but no relieving factors associated with the nausea but no vomiting and diarrhea. Patient also reported increased urinary frequency but denies dysuria. Patient is thinking of diverticulitis because of history of diverticulitis 2 years ago. PMH follow GERD, diverticulitis, osteoarthritis, C diff infection 4 years ago PSH: Partial hysterectomy for endometriosis, rotator cuff surgery Family history: Stomach cancer in aunt and breast cancer Social history: Lives at home. Denies smoking, alcohol and other drug abuse Allergies: No specific allergies # Acute complicated UTI/ cystitis # Acute Pyelonephritis - evident on urinalysis - ordered urine bacterial culture - currently giving Rocephin #suspected gastroenteritis (bacterial) # Acute GERD - Protonix - Carafate # Colonic diverticulosis- dietary education given # Hepatic steatosis likely possible MASH - evident on CT, outpatient follow up with GI # Hypertensive urgency without known diagnosis of hypertension -given clonidine in ED -continuously monitor blood pressure -started on nifedipine 30 #intractable nausea/vomiting 01/27/2025: continue with iv abx. pain control. urine cx pending. increase nifedipine for better blood pressure control. started on IV Abx 01/28/2025 pt has flank pain. urine culture pending. pt has significant pain advance diet slowly as pt is still nauseated GI PPX: Protonix VTE ppx: Lovenox Diet: advance as tolerated Plan discussed with: Patient Date of Service: Jan 28, 2025 Billing Provider: RUTH CAREY DO Common Visit Codes: [id number] INP/OBS CARE(HIGH) RUTH CAREY DO Jan 29, 2025 14:28
--- NOTE | 2025-01-29 14:43 | DVHPN2 ---
Reviewed: Care Plan, Labs, Medications, Previous Orders, Radiology Changes from previous H/P or p: No Changes General: Per HPI Objective Vitals Vital Signs Date Time Temp Pulse Resp B/P (MAP) Pulse Ox O2 Delivery O2 Flow Rate FiO2 01/29/25 14:21 98.2 79 16 143/79 (100) 99 98.2 01/29/25 08:00 Room Air* 0 21 Intake/Output Intake and Output 01/29/25 07:00 Intake Total 1010 ml Balance 1010 ml Intake Oral 760 ml IV Total 250 ml # Voids 3 General Appearance: Alert, Oriented X3, Cooperative, No acute distress Cardiovascular: Normal S1, Normal S2 Abdomen: Soft Medications Current Medications Medications Dose Ordered Sig/Saranya Route Start Time Stop Time Status Last Admin Dose Admin Sodium Chloride 10 ml Q8HR IV 01/26/25 14:00 01/29/25 14:02 10 ML Sodium Chloride 1,000 ml @ 60 mls/hr [id number] IV 01/26/25 11:45 01/29/25 06:41 60 MLS/HR Ondansetron HCl 4 mg Q4HP PRN IV 01/26/25 11:45 01/28/25 17:12 4 MG Enoxaparin Sodium 40 mg DAILY SC 01/27/25 10:00 01/29/25 08:49 40 MG Acetaminophen 650 mg Q6HP PRN PO 01/26/25 11:45 01/28/25 12:19 650 MG Morphine Sulfate 2 mg Q4HPRN PRN IV 01/26/25 12:15 01/29/25 11:59 2 MG Nitroglycerin 0.4 mg Q5MINP PRN SL 01/26/25 11:45 Morphine Sulfate 2 mg Q30M PRN IV 01/26/25 12:15 Pantoprazole Sodium 40 mg DAILY IV 01/27/25 10:00 01/29/25 08:48 40 MG Sucralfate 1 gm BID@0600,2200 PO 01/26/25 11:45 01/29/25 05:09 1 GM Ceftriaxone Sodium 50 ml @ 100 mls/hr DAILY@09 IV 01/27/25 09:00 01/29/25 08:48 100 MLS/HR Nifedipine 60 mg DAILY PO 01/28/25 10:00 01/29/25 08:48 60 MG Hydralazine HCl 25 mg Q8HR PO 01/27/25 22:00 Metronidazole 100 ml @ 100 mls/hr Q8HR IV 01/27/25 22:00 01/29/25 05:09 100 MLS/HR Laboratory Results Laboratory Tests 01/27/25 03:33 Urinalysis Test 01/26/25 10:35 Urine Color Yellow (Yellow) Urine Clarity Cloudy (Clear) H Urine pH 5.5 (5.0-9.0) Urine Specific [place] 1.021 (1.001-1.035) Urine Protein Trace (Negative) H Urine Ketones 1+ (Negative) H Urine Blood 1+ /uL (Negative) H Urine Nitrite Negative (Negative) Urine Bilirubin Negative (Negative) Urine Urobilinogen Normal mg/dL (Negative) Urine Leukocyte Esterase 3+ /uL (Negative) Urine RBC 15 /hpf (0 - 4) Urine Microscopic WBC 20 /HPF (0-5) H Urine Squamous Epithelial Cells Mod /hpf (<5) Urine Bacteria Few /hpf (None Seen) H Urine Mucus Few (None Seen) Urine Yeast (Budding) Few /hpf (None Seen) Urine Glucose Normal mg/dL (Normal) Microbiology Microbiology Date/Time Source Procedure Growth Status 01/26/25 10:35 Voided Urine Urine Culture - Final Complete Assessment/Plan Assessment/Plan Marce Natarajan is a 69-year-old female with a PMH of GERD, diverticulitis, osteoarthritis presented to the ED with the chief complaints of left-sided abdominal pain since 3 weeks. Patient reported she was initially went to [facility] where she was given tramadol and sent home however the pain not improved and remained constant which is 8 to 10/10 in intensity, located in left upper and lower quadrant radiating to flank and back, aggravated by eating but no relieving factors associated with the nausea but no vomiting and diarrhea. Patient also reported increased urinary frequency but denies dysuria. Patient is thinking of diverticulitis because of history of diverticulitis 2 years ago. PMH follow GERD, diverticulitis, osteoarthritis, C diff infection 4 years ago PSH: Partial hysterectomy for endometriosis, rotator cuff surgery Family history: Stomach cancer in aunt and breast cancer Social history: Lives at home. Denies smoking, alcohol and other drug abuse Allergies: No specific allergies # Acute complicated UTI/ cystitis # Acute Pyelonephritis - evident on urinalysis - ordered urine bacterial culture - currently giving Rocephin #suspected gastroenteritis (bacterial) # Acute GERD - Protonix - Carafate # Colonic diverticulosis- dietary education given # Hepatic steatosis likely possible MASH - evident on CT, outpatient follow up with GI # Hypertensive urgency without known diagnosis of hypertension -given clonidine in ED -continuously monitor blood pressure -started on nifedipine 30 #intractable nausea/vomiting 01/27/2025: continue with iv abx. pain control. urine cx pending. increase nifedipine for better blood pressure control. started on IV Abx 01/28/2025 pt has flank pain. urine culture pending. pt has significant pain advance diet slowly as pt is still nauseated 01/29/2025: advancing diet as tolerated still has nausea/vomiting discussed with pt and nursing GI PPX: Protonix VTE ppx: Lovenox Diet: advance as tolerated Plan discussed with: Patient My Orders Orders - RUTH CAREY DO Procedure Category Date Status Time Urinalysis LAB 01/29/25 Logged 14:28 Full Liq Diet DIET 01/29/25 Transmitted Dinner Date of Service: Jan 29, 2025 Billing Provider: RUTH CAREY DO Common Visit Codes: [id number] INP/OBS CARE(HIGH) RUTH CAREY DO Jan 29, 2025 14:43
[2025-01-30] VITALS (7 sets, daily range): BP systolic 124–148; BP diastolic 57–81; PULSE 67–92; RESP 16–18; TEMP 97.2–98.2; O2SAT 97–99
[2025-01-30 05:52] LABS: Urine Budding Yeast MODERATE /hpf (None Seen); Urine Protein, UAD Negative (Negative)
[2025-01-30] MEDS ORDERED: NIFE1TAB31 PO (15:49)
[2025-01-30] MEDS ORDERED: LEVO500T91 PO (15:49)
--- NOTE | 2025-01-30 15:50 | DVHDS2 ---
Discharge Summary Date of Admission Jan 26, 2025 at 11:33 Date of Discharge: Jan 30, 2025 Labs/Diagnostic Data: Laboratory Results Test 01/30/25 05:32 01/27/25 03:33 01/26/25 11:48 01/26/25 10:35 Urine Color Light-yellow (Yellow) Urine Clarity Turbid (Clear) Urine pH 5.5 (5.0-9.0) Urine Specific [place] 1.010 (1.001-1.035) Urine Protein Negative (Negative) Urine Ketones Negative (Negative) Urine Blood Negative /uL (Negative) Urine Nitrite Negative (Negative) Urine Bilirubin Negative (Negative) Urine Urobilinogen Normal mg/dL (Negative) Urine Leukocyte Esterase 3+ /uL (Negative) Urine RBC 14 /hpf (0 - 4) Urine Microscopic WBC 11 /HPF (0-5) Urine Squamous Epithelial Cells Few /hpf (<5) Urine Bacteria None seen /hpf (None Seen) Urine Mucus Few (None Seen) Urine Yeast (Budding) Moderate /hpf (None Seen) Urine Glucose Normal mg/dL (Normal) White Blood Count 5.2 10^3/uL (4.4-10.8) Red Blood Count 4.12 10^6/uL (4.0-5.20) Hemoglobin 12.9 g/dL (12.2-16.2) Hematocrit 37.9 % (36.0-46.0) Mean Corpuscular Volume 91.9 fL (80.0-100.0) Mean Corpuscular Hemoglobin 31.2 pg (28.0-32.0) Mean Corpuscular Hemoglobin Concent 34.0 g/dL (32.0-36.0) Red Cell Distribution Width 12.7 % (11.8-14.3) Platelet Count 191 10^3/uL (140-450) Mean Platelet Volume 8.7 fL (6.9-10.8) Neutrophils (%) (Auto) 50.5 % (37.0-80.0) Lymphocytes (%) (Auto) 36.8 % (10.0-50.0) Monocytes (%) (Auto) 9.6 % (0.0-12.0) Eosinophils (%) (Auto) 2.5 % (0.0-7.0) Basophils (%) (Auto) 0.6 % (0.0-2.0) Neutrophils # (Auto) 2.6 10 ^3/uL (1.6-8.6) Lymphocytes # (Auto) 1.9 10 ^3/uL (0.4-5.4) Monocytes # (Auto) 0.5 10 ^3/uL (0-1.3) Eosinophils # (Auto) 0.1 10 ^3/uL (0-0.8) Basophils # (Auto) 0 10 ^3/uL (0-0.2) Nucleated Red Blood Cells 0.1 % Sodium Level 142 mmol/L (136-145) Potassium Level 4.3 mmol/L (3.5-5.1) Chloride Level 108 mmol/L (98-107) Carbon Dioxide Level 26 mmol/L (20-31) Anion Gap 8 (5-15) Blood Urea Nitrogen 6 mg/dL (9-23) Creatinine 0.76 mg/dL (0.550-1.02) Glomerular Filtration Rate Calc 85 mL/min (>90) BUN/Creatinine Ratio 7.9 (10.0-20.0) Serum Glucose 87 mg/dL (74-106) Calcium Level 9.0 mg/dL (8.7-10.4) Total Bilirubin 0.5 mg/dL (0.2-1.0) Aspartate Amino Transferase (AST) 26 U/L (13-40) Alanine Aminotransferase (ALT) 23 U/L (7-40) Alkaline Phosphatase 65 U/L (46-116) Total Protein 6.5 g/dL (5.7-8.2) Albumin 3.8 g/dL (3.2-4.8) Lactic Acid Level 1.0 mmol/L (0.4-2.0) Magnesium Level 2.0 mg/dL (1.6-2.6) B-Type Natriuretic Peptide 12.61 pg/mL (0-100) Urine Opiates Screen Neg (NEGATIVE) Urine Fentanyl Screen Neg (NEGATIVE) Urine Barbiturates Screen Neg (NEGATIVE) Urine Phencyclidine Screen Neg (NEGATIVE) Urine Amphetamines Screen Neg (NEGATIVE) Urine Benzodiazepines Screen Neg (NEGATIVE) Urine Cocaine Screen Neg (NEGATIVE) Urine Cannabinoids Screen Neg (NEGATIVE) Test 01/26/25 09:14 Lipase 37 U/L (12-53) Other Laboratory Tests 01/27/25 03:33 Brief Hx & Hospital Course: Marce Natarajan is a 69-year-old female with a PMH of GERD, diverticulitis, osteoarthritis presented to the ED with the chief complaints of left-sided abdominal pain since 3 weeks. Patient reported she was initially went to [facility] where she was given tramadol and sent home however the pain not improved and remained constant which is 8 to 10/10 in intensity, located in left upper and lower quadrant radiating to flank and back, aggravated by eating but no relieving factors associated with the nausea but no vomiting and diarrhea. Patient also reported increased urinary frequency but denies dysuria. Patient is thinking of diverticulitis because of history of diverticulitis 2 years ago. PMH follow GERD, diverticulitis, osteoarthritis, C diff infection 4 years ago PSH: Partial hysterectomy for endometriosis, rotator cuff surgery Family history: Stomach cancer in aunt and breast cancer Social history: Lives at home. Denies smoking, alcohol and other drug abuse Allergies: No specific allergies # Acute complicated UTI/ cystitis # Acute Pyelonephritis - evident on urinalysis - ordered urine bacterial culture - currently giving Rocephin #suspected gastroenteritis (bacterial) # Acute GERD - Protonix - Carafate # Colonic diverticulosis- dietary education given # Hepatic steatosis likely possible MASH - evident on CT, outpatient follow up with GI # Hypertensive urgency without known diagnosis of hypertension -given clonidine in ED -continuously monitor blood pressure -started on nifedipine 30 #intractable nausea/vomiting 01/27/2025: continue with iv abx. pain control. urine cx pending. increase nifedipine for better blood pressure control. started on IV Abx 01/28/2025 pt has flank pain. urine culture pending. pt has significant pain advance diet slowly as pt is still nauseated 01/29/2025: advancing diet as tolerated still has nausea/vomiting discussed with pt and nursing 01/30/2025z; discharged to home Condition at Discharge: Fair Final Diagnosis/Problems List see above Discharge Disposition: Home Discharge Instruct/Medications Diet: Cardiac 2g Na,low cholest Activity: No Restrictions, As Tolerated Scheduled Levofloxacin Hemihydrate (Levofloxacin), 1 TAB PO DAILY Nifedipine (Nifedipine Er), 60 MG PO DAILY Discharge Statement: "Patient was advised to return to the ER or call 911 if any headaches, dizziness, shortness of breath, chest pain, abdominal pain, bleeding, fevers, or worsening of medical condition. Patient was counseled about treatment plan, medications, possible side effects, patientverbalized understanding. All questions were answered to the best of my ability. This discharge took greater then 30 minutes in planning, reviewing documentation, counseling the patient, and discussing with other team members." ASSESSMENT ASSESSMENT Assessment Date of Service: Jan 30, 2025 Billing Provider: RUTH CAREY DO Common Visit Codes: [id number] DISCH DAY >30min RUTH CAREY DO Jan 30, 2025 15:50
[2025-01-31 01:00] VITALS: BP 127/71; PULSE 74; RESP 18; TEMP 97.4; O2SAT 96
[2025-01-31 05:00] VITALS: BP 125/72; PULSE 71; RESP 17; TEMP 97.3; O2SAT 98
[2025-01-31 08:00] VITALS: PULSE 70; RESP 18; O2SAT 96
[2025-01-31 08:30] VITALS: BP 129/70; PULSE 73; RESP 17; TEMP 98.4; O2SAT 99
[2025-01-31] MEDS: IOHEXOL 300 MG/ML 100ML BOTTLE IJ ONE (08:41)
--- NOTE | 2025-01-31 11:43 | DVH ---
Indication: Abd pain. Technique: CT axial images of the abdomen and pelvis are obtained with intravenous contrast. Coronal and sagittal reformats were obtained. Radiation Dose Information: CTDI volume is 7.9 mGy. Dose-length product is 435.67 mGy*cm Comparison: None FINDINGS: Lung bases demonstrate no pleural effusion. Adrenal glands, spleen, pancreas unremarkable. Cholelithiasis. Hepatic steatosis. Kidneys demonstrate no hydronephrosis. 2 cm right renal cysts. Stomach partially distended. Small bowel loops normal in caliber. Colonic diverticular disease. Norm al appendix. Abdominal aorta normal in caliber. Bladder partially distended. No free pelvic fluid. No inguinal lym phadenopathy. [id number] thoracolumbar degenerative disc disease. IMPRESSION: Colonic diverticular disease. Hepatic steatosis. Cholelithiasis. Other findings as described.
[2025-01-31 12:20] VITALS: BP 148/74; PULSE 70; RESP 17; TEMP 98; O2SAT 96
[2025-01-31] MEDS: METOCLOPRAMIDE HCL 10 MG TAB PO PRN (13:56)
--- NOTE | 2025-01-31 14:28 | DVHINCON2 ---
GI Consult Consult Note GI consult note Date of Consultation: 01/31/2025 Chief Complaint: Bloating and abdominal pain Referring Physician: Dr. Muro H&P: 69-year-old female admitted with left-sided abdominal pain on and off for the past 3-4 weeks. Patient admits to feeling of bloated and fullness after having meals. Gets worse with dairy products. Patient has nausea, denies vomiting or hematemesis. BM every day denies melena or red blood in stool. Patient has been treating with Zofran and Protonix. Status post EGD many years ago diagnosed with gastritis per patient Past Medical History: GERD, diverticulitis, osteoarthritis, C diff infection 4 years ago Past Surgical History: Partial hysterectomy for endometriosis, rotator cuff surgery Social History: NO smoking, drinking ETOH and use of illegal drugs. Family History: Noncontributory Review of Systems: Constitutional: no fever, chill, weight loss HEENT: no eye pain, no hearing loss, no oral lesion, no scleral icterus Heart: no chest pain, no chest pressure Lung: no cough, no dyspnea with exertion Abdomen: see HPI Physical exam: General: NAD, AAOX3 Chest: lung farias clear to auscultation Heart: RRR, no murmur Abdomen: non-distended, mild left side tenderness to palpation, +BS Labs:Laboratory Results Test 01/30/25 05:32 01/27/25 03:33 01/26/25 11:48 01/26/25 10:35 Urine Color Light-yellow (Yellow) Urine Clarity Turbid (Clear) Urine pH 5.5 (5.0-9.0) Urine Specific [place] 1.010 (1.001-1.035) Urine Protein Negative (Negative) Urine Ketones Negative (Negative) Urine Blood Negative /uL (Negative) Urine Nitrite Negative (Negative) Urine Bilirubin Negative (Negative) Urine Urobilinogen Normal mg/dL (Negative) Urine Leukocyte Esterase 3+ /uL (Negative) Urine RBC 14 /hpf (0 - 4) Urine Microscopic WBC 11 /HPF (0-5) Urine Squamous Epithelial Cells Few /hpf (<5) Urine Bacteria None seen /hpf (None Seen) Urine Mucus Few (None Seen) Urine Yeast (Budding) Moderate /hpf (None Seen) Urine Glucose Normal mg/dL (Normal) White Blood Count 5.2 10^3/uL (4.4-10.8) Red Blood Count 4.12 10^6/uL (4.0-5.20) Hemoglobin 12.9 g/dL (12.2-16.2) Hematocrit 37.9 % (36.0-46.0) Mean Corpuscular Volume 91.9 fL (80.0-100.0) Mean Corpuscular Hemoglobin 31.2 pg (28.0-32.0) Mean Corpuscular Hemoglobin Concent 34.0 g/dL (32.0-36.0) Red Cell Distribution Width 12.7 % (11.8-14.3) Platelet Count 191 10^3/uL (140-450) Mean Platelet Volume 8.7 fL (6.9-10.8) Neutrophils (%) (Auto) 50.5 % (37.0-80.0) Lymphocytes (%) (Auto) 36.8 % (10.0-50.0) Monocytes (%) (Auto) 9.6 % (0.0-12.0) Eosinophils (%) (Auto) 2.5 % (0.0-7.0) Basophils (%) (Auto) 0.6 % (0.0-2.0) Neutrophils # (Auto) 2.6 10 ^3/uL (1.6-8.6) Lymphocytes # (Auto) 1.9 10 ^3/uL (0.4-5.4) Monocytes # (Auto) 0.5 10 ^3/uL (0-1.3) Eosinophils # (Auto) 0.1 10 ^3/uL (0-0.8) Basophils # (Auto) 0 10 ^3/uL (0-0.2) Nucleated Red Blood Cells 0.1 % Sodium Level 142 mmol/L (136-145) Potassium Level 4.3 mmol/L (3.5-5.1) Chloride Level 108 mmol/L (98-107) Carbon Dioxide Level 26 mmol/L (20-31) Anion Gap 8 (5-15) Blood Urea Nitrogen 6 mg/dL (9-23) Creatinine 0.76 mg/dL (0.550-1.02) Glomerular Filtration Rate Calc 85 mL/min (>90) BUN/Creatinine Ratio 7.9 (10.0-20.0) Serum Glucose 87 mg/dL (74-106) Calcium Level 9.0 mg/dL (8.7-10.4) Total Bilirubin 0.5 mg/dL (0.2-1.0) Aspartate Amino Transferase (AST) 26 U/L (13-40) Alanine Aminotransferase (ALT) 23 U/L (7-40) Alkaline Phosphatase 65 U/L (46-116) Total Protein 6.5 g/dL (5.7-8.2) Albumin 3.8 g/dL (3.2-4.8) Lactic Acid Level 1.0 mmol/L (0.4-2.0) Magnesium Level 2.0 mg/dL (1.6-2.6) B-Type Natriuretic Peptide 12.61 pg/mL (0-100) Urine Opiates Screen Neg (NEGATIVE) Urine Fentanyl Screen Neg (NEGATIVE) Urine Barbiturates Screen Neg (NEGATIVE) Urine Phencyclidine Screen Neg (NEGATIVE) Urine Amphetamines Screen Neg (NEGATIVE) Urine Benzodiazepines Screen Neg (NEGATIVE) Urine Cocaine Screen Neg (NEGATIVE) Urine Cannabinoids Screen Neg (NEGATIVE) Test 01/26/25 09:14 Lipase 37 U/L (12-53) Other Laboratory Tests 01/27/25 03:33 Imaging: CT abdomen pelvis without contrast 01/26/2025 IMPRESSION: 1. Scattered colonic diverticula without adjacent inflammatory changes to suggest diverticulitis. 2. Hepatic steatosis. 3. Additional nonacute findings as described above. CT abdomen pelvis with IV contrast IMPRESSION: Colonic diverticular disease. Hepatic steatosis. Cholelithiasis. Other findings as described. Assessment: Abdominal pain Hepatic steatosis Cholelithiasis Diverticulosis Dyspepsia Plan: Discussed with Dr. Stephane Campbell and Protonix Add Reglan Recommend lactose-free diet Outpatient GI follow-up recommended for possible elective GI procedures as needed Discussed plan with patient, RN and hospitalist Dr. Muro Thank you for this consult Date of Service: Jan 31, 2025 Billing Provider: BOOKER MEZA Common Visit Codes: CONSULT ONLY Consultation Codes: [id number] CONSULT <60MIN BOOKER MEZA Jan 31, 2025 14:28
[2025-01-31 16:30] VITALS: BP 130/77; PULSE 74; RESP 16; TEMP 98.3; O2SAT 97
== END 2025-01-31 18:25 | disposition home or self-care (01) | DRG 372 ==
LOC: ER 07:58 → OVERFLOW 11:33 → WEST WING 14:42
PROVIDERS: ADMIT Internal Medicine; ATTEND Internal Medicine
DX: A04.9 Bacterial intestinal infection, unspecified (principal); N10 Acute pyelonephritis; N30.00 Acute cystitis without hematuria; K57.30 Diverticulosis of large intestine without perforation or abscess without bleeding; I16.0 Hypertensive urgency; K80.20 Calculus of gallbladder without cholecystitis without obstruction; K21.9 Gastro-esophageal reflux disease without esophagitis; K76.0 Fatty (change of) liver, not elsewhere classified; Z98.891 History of uterine scar from previous surgery; Z90.711 Acquired absence of uterus with remaining cervical stump; Z83.3 Family history of diabetes mellitus; Z82.49 Family history of ischemic heart disease and other diseases of the circulatory system; Z80.3 Family history of malignant neoplasm of breast; Z80.0 Family history of malignant neoplasm of digestive organs
CPT/HCPCS: 36415; 74176; 74177; 80053; 80307; 81001; 83605; 83690; 83735; 83880; 85025; 87086; G0378; J2405; J2470; J3490